=== PATIENT | male | born 1945 | race Caucasian/White ===

== ENCOUNTER → 2023-08-07 | Outpatient (CLI) | payer OTHER ==
--- NOTE | 2023-08-07 11:59 | Diagnostic Imaging Report ---
INDICATION: Dysphagia. TECHNIQUE: Procedure was performed in conjunction with Speech Pathology. Video fluoroscopy was performed during the swallowing of barium at multiple consistencies. A total of 73 seconds of fluoroscopic time was utilized. Reference air kerma is 3.7 mGy. FINDINGS: Patient ingested thin barium as well as applesauce, banana, and cracker consistency. There were two episodes of flash laryngeal penetration during the swallowing of thin barium. Very mild vallecular residue was noted with several consistencies; however, this did clear with a second swallow. There is normal epiglottic tilt and laryngeal elevation. No aspiration was observed. IMPRESSION: Essentially unremarkable modified barium swallow apart from two episodes of laryngeal penetration during the swallowing of thin barium. No aspiration was observed. Dictated by: Dictated on workstation # [id number]
== END ==
LOC: RAD 09:45
PROVIDERS: ATTEND Family Medicine
DX: R13.10 Dysphagia, unspecified (principal)
CPT/HCPCS: 74230